=== PATIENT | female | born 1955 | race Two or more races ===

== ENCOUNTER 2022-07-08 10:03 | Emergency (ER) | payer OTHER ==
[~2022-07-08] VITALS: Ht 152.4 cm; Wt 105.2 kg
[~2022-07-08 10:03] MED LIST: ATACAND16 MG PO; CELEBREX200MG PO; CYCLOBENZAPRINE10 MG PO; DERMOTIC20 ML OTIC; DICLOFENAC SODI75 MG PO; FLONASE16 GM NS; NORFLEX100MG PO; SKELAXIN800 MG PO; TROPOL
[2022-07-08] MEDS ORDERED: METOPROLOL SUC100 MG (10:47)
[2022-07-08] MEDS ORDERED: EZETIMIBE10 MG (10:47)
[2022-07-08] MEDS ORDERED: CANDESARTAN-HC1 EACH (10:47)
[2022-07-08] MEDS ORDERED: FOLIC ACID1 MG (10:47)
[2022-07-08] MEDS ORDERED: METHOTREXATE2.5 MG (10:47)
[2022-07-08] MEDS ORDERED: ROSUVASTATIN CA20 MG (10:48)
[2022-07-08] MEDS ORDERED: CELECOXIB200 MG (10:48)
[2022-07-08] MEDS ORDERED: DICLOFENAC POTA50 MG PO (15:13)
[2022-07-08] MEDS ORDERED: CYCLOBENZAPRINE10 MG PO (15:13)
== END 2022-07-08 15:54 ==
LOC: ER 10:03
DX: M54.31 Sciatica, right side (principal)

== ENCOUNTER 2023-06-17 06:00 | Day surgery (SDC) | payer OTHER ==
[2023-06-11 09:16] LABS: HEMATOCRIT 38.7 % (36.0-45.00); HEMOGLOBIN 13.2 g/dL (12.0-15.00); MEAN CELL VOLUME 87.9 fL (80.00-100.00); MEAN CORPUSCULAR HGB CONC 34.2 g/dl (32.0-36.0); PH,URINE 5.5 (5.0-8.0); PLATELET COUNT 227 K/uL (150-450); RED CELL DISTRIBUTION WIDTH 14.3 % (11.5-14.5); URINE APPEARANCE Cloudy; URINE BILIRRUBIN Negative (NEGATIVE); URINE BLOOD Negative; URINE COLOR Yellow; URINE GLUCOSE Negative (NEGATIVE); URINE LEUKOCYTE Small; URINE NITRATE Negative; URINE PROTEIN Negative (NEGATIVE)
[2023-06-11 09:21] LABS: URINE BACTERIA 4840.6 uL (0.0-1933); URINE RBC 6.4 uL (0.0-20.8); URINE WBC 57.6 uL (0.0-23.2)
[2023-06-11 09:49] LABS: PARTIAL THROMBOPLASTIN TIME 26.1 SECONDS (22.0-34.0); PROTHROMBIN TIME 10.5 SECONDS (9.0-11.5)
[2023-06-11 09:50] LABS: CALCIUM 9.7 mg/dL (8.5-10.1); CREATININE SERUM 0.62 mg/dL (0.55-1.02); GFR 96.31; POTASSIUM 4.02 mEq/L (3.5-5.1)
[~2023-06-17] VITALS: Ht 152.4 cm; Wt 102.5 kg
[~2023-06-17 06:00] MED LIST changes: +CANDESARTAN-HC1 EACH; +CELECOXIB200 MG; +DICLOFENAC POTA50 MG PO; +EZETIMIBE10 MG; +FOLIC ACID1 MG; +METHOTREXATE2.5 MG; +METOPROLOL SUC100 MG; +ROSUVASTATIN CA20 MG
== END 2023-06-17 13:10 | disposition home or self-care (01) ==
LOC: CIR.AMB 06:00
PROVIDERS: ATTEND Surgery Surgery of the Hand
DX: M67.844 Other specified disorders of tendon, left hand (principal); Z20.822 Contact with and (suspected) exposure to COVID-19; E11.9 Type 2 diabetes mellitus without complications; I10 Essential (primary) hypertension; E78.5 Hyperlipidemia, unspecified

== ENCOUNTER → 2024-07-06 | Emergency (ER) | payer OTHER ==
[~2024-07-06] VITALS: Ht 152.4 cm; Wt 99.8 kg
[~2024-07-06] MED LIST changes: +KETOROLAC TROMETHAMINE 60 MG VIAL IM ONE; +TRIAMCINOLONE ACETONIDE 40 MG/ML VIAL IM ONE
== END | disposition home or self-care (01) ==
LOC: ER 09:35
DX: M25.512 Pain in left shoulder (principal); I10 Essential (primary) hypertension; M75.32 Calcific tendinitis of left shoulder
CPT/HCPCS: 73030; 96372; 99283; J1885; J3301